=== PATIENT | male | born 1945 | race Caucasian/White ===

== ENCOUNTER 2018-02-05 23:03 | Observation (INO) | payer MEDICARE, OTHER ==
--- NOTE | 2018-02-05 23:18 | ERNOTE ---
Dyspnea - General Presenting Symptoms: shortness of breath Time Seen by Provider: 02/05/18 23:07 Source: patient Exam Limitations: no limitations - Immun/Allergies/Home Medications Allergies/Adverse Reactions: Allergies fructose Allergy (Mild, Verified 02/05/18 23:39) Home Medications: HOME MEDICATIONS ALPRAZolam [Xanax] 0.5 mg PO BID 02/05/18 [Last Taken Unknown] Amino AC/Whey Prot Conc, Isol [Whey Protein Powder] 20 gm PO DAILY 02/05/18 [ Last Taken Unknown] Arformoterol Tartrate [Brovana] 15 mcg IH BID 02/05/18 [Last Taken Unknown] Aspirin 81 mg PO DAILY 02/05/18 [Last Taken Unknown] Budesonide [Pulmicort Respules] 2 ml IH BID 02/05/18 [Last Taken Unknown] Flecainide Acetate 100 mg PO BID 02/05/18 [Last Taken Unknown] Ipratropium [place] 0.2 mg IH QID 02/05/18 [Last Taken Unknown] Midodrine HCl 5 mg PO TID 02/05/18 [Last Taken Unknown] Omeprazole 20 mg PO DAILY 02/05/18 [Last Taken Unknown] Pnv No.122/Iron/Folic Acid [ Multi Tablet] 1 each PO DAILY 02/05/18 [ Last Taken Unknown] Pravastatin Sodium 40 mg PO DAILY 02/05/18 [Last Taken Unknown] Propranolol HCl 60 mg PO BID 02/05/18 [Last Taken Unknown] Warfarin Sodium 4 mg PO TUFR 02/05/18 [Last Taken Unknown] Warfarin Sodium [Coumadin] 3 mg PO SUMOWETHSA 02/05/18 [Last Taken Unknown] metFORMIN HCL [Metformin HCl] 500 mg PO BID 02/05/18 [Last Taken Unknown] predniSONE [Prednisone] 2.5 mg PO DAILY 02/05/18 [Last Taken Unknown] - History of Present Illness Narrative: Pt had onset of increased shortness of breath last night and has been worsening throughout the day. Severity: moderate Treatment [employer]: paramedics, oxygen, albuterol Initiating event: Reports: unknown Frequency of episodes: Reports: frequent episodes Modifying Factors - (Improves): Reports: albuterol, oxygen Modifying Factors (Worsens): Reports: activity Associated Symptoms-Dyspnea: Reports: fever/chills, wheezing Review of Systems - Review of Systems Constitutional: Present: recent illness, chills EYE: Absent: vision changes Respiratory: Present: See HPI, shortness of breath Cardiology: Absent: chest pain, palpitations Gastrointestinal/Abdominal: Absent: nausea, vomiting Musculoskeletal: Absent: back pain, muscle pain Endocrine: Absent: excessive sweating, flushing Medical History (Last Reviewed 02/06/18 @ 02:42 by Luis Alberto Honeycutt DO) Afib COPD (chronic obstructive pulmonary disease) Diabetes Essential tremor Surgical History: Surgical History (Last Reviewed 02/06/18 @ 02:42 by Luis Alberto Honeycutt DO) FH: carotid endarterectomy Hx of tonsillectomy Pacemaker Prostate cancer Family History: Family History (Last Updated 02/05/18 @ 23:28 by Ela Astudillo RN) Other Unknown family medical history Physical Exam - Physical Exam General Appearance: Present: wd/wn, alert, mild distress Head Exam: Present: normal inspection, no evidence of injury Ears, Nose, Throat: Present: normal ENT inspection Neck: Present: normal inspection, nontender Respiratory: Present: no accessory muscle use, decreased breath sounds, expiration (prolonged) Cardiovascular/Chest: Present: regular rate, rhythm, no murmur Gastrointestinal/Abdominal: Present: normal bowel sounds, nontender, nondistended, soft Extremity Exam: Present: normal inspection, normal range of motion Neurological Exam: Present: alert, oriented, normal mood/affect Skin Exam: Present: warm/dry Lymphatic Exam: Present: no adenopathy ED Progress - Results and Orders Patient's Lab Results:: I have reviewed the patient's lab results. Results and Orders: Laboratory Tests 02/05/18 02/05/18 23:20 23:20 Sodium 137 Potassium 3.7 Carbon Dioxide 30.6 BUN 13 Creatinine 0.93 Random Glucose 108 Lactic Acid, Venous 1.7 Calcium 9.2 Total Bilirubin 0.5 AST 19 ALT 42 Alkaline Phosphatase 50 B-Natriuretic Peptide 354 H Total Protein 8.1 Albumin 3.8 - Vital Signs Patient's Vital Signs:: I have reviewed the patient's vital signs. - EKG EKG read: Interp. by me EKG Comments: supraventricular rhythm, artifact from pt's essential tremor present. No ST-T wave changes. - X-Ray X-Ray #1 X-Ray: chest Interpretation: Interp. by me X-ray Comments: Scarring bilateral bases, no infiltrate or effusion. changes of COPD. - Progress/Reassessment Progress:: Improved Progress Note-Subjective: 02/06/18 02:[address] De La Torre he agrees with admission Departure Clinical Impression: Acute exacerbation of chronic obstructive pulmonary disease (COPD) - Departure Disposition: Still a patient Condition: Fair
[2018-02-05 23:29] LABS: Hematocrit 42.4 % (42.0-52.0); Hemoglobin 13.6 gm/dL (13.5-18.0); Mean Cell Volume 94.6 fl (78-100); Mean Corpuscular Hemoglobin 30.4 pg (27-31); Mean Corpuscular Hgb Conc 32.1 g/dl (32-36); Mean Platelet Volume 11.7 fl (8-11.3); Neutrophil # 10.7 K/mm3 (1.3-6.0); Neutrophil % 75.1 % (42-75.0); Platelet Count 200 K/mm3 (150-450); Red Blood Count 4.48 M/mm3 (4.7-6.0); Red Cell Distribution Width 16.2 % (11.5-14.0); White Blood Count 14.3 K/mm3 (4.0-10.5)
[2018-02-05 23:52] LABS: Albumin * 3.8 gm/dl (3.4-5.0); Anion Gap 10.1 mmol/L (6.8-13.8); Bilirubin, Total 0.5 mg/dL (0.0-1.1); Calcium * 9.2 mg/dL (7.9-10.9); Carbon Dioxide 30.6 mmol/L (24-32.6); Potassium 3.7 mmol/L (3.4-4.6); Total Protein 8.1 gm/dL (6.2-8.2)
[2018-02-06] MEDS ORDERED: METHYLPREDNISOLONE SOD SUCC/PF 125 MG/2 ML VIAL IV ONE (02:11)
[2018-02-06] MEDS ORDERED: METHYLPREDNISOLONE SOD SUCC/PF 125 MG/2 ML VIAL ONE (02:24)
--- NOTE | 2018-02-06 08:58 | HP ---
Chief Complaint - Chief Complaint Date of Service: 02/06/18 Time of Service: 08:52 Chief Complaint: Shortness of Breath History of Present Illness: Robert is a 72 yo male with COPD and chronic respiratory failure. He is on 2lpm during the day and 3lpm at night for his baseline. He denies any recent travel, sick contacts, or other changes. He reports over the last few days he has increased shortness of breath, increased sputum production. No fevers or chills. He did not have significant hypoxia in the ER and remains on his baseline O2 needs. He reports this morning he is already feeling a little better. Chest xray showed no evidence of pneumonia or acute change. Medical History (Last Updated 02/06/18 @ 05:17 by Perla Duncan RN) Anxiety Hyperlipemia Hypotension Afib COPD (chronic obstructive pulmonary disease) Diabetes Essential tremor Surgical History: Surgical History (Last Reviewed 02/06/18 @ 05:18 by Perla Duncan RN) FH: carotid endarterectomy Hx of tonsillectomy Pacemaker Prostate cancer Family History: Family History (Last Reviewed 02/06/18 @ 05:18 by Perla Duncan RN) Other Unknown family medical history Social History: Patient Lives/Resources With Spouse Utilized Occupation Retired Preferred Language [place] Do you have any samaritan or No cultural preference? Smoking Status Current every day smoker Have you smoked in the past 12 Yes months Do you dip or chew tobacco No Alcohol Use none Drug Use none Review Of Systems (GEN) - Review of Systems Generalized/Overall Review: Present: Weakness. Absent: Chills, Fever EENTM: Present: No Symptoms Reported Respiratory: Present: Cough, Shortness of Breath Cardiac: Absent: Chest Pain, Palpitations Abdominal: Absent: Nausea, Vomiting Genitourinary: Present: No Symptoms Reported Musculoskeletal: Present: No Symptoms Reported Neurological: Present: No Symptoms Reported Skin: Present: No Symptoms Reported Immunizations: IMMUNIZATION HX Immunizations Up to Date Yes History of Influenza Vaccine No Allergies/Adverse Reactions: Allergies Allergy/AdvReac Type Severity Reaction Status Date / Time fructose Allergy Mild Verified 02/05/18 23:39 Home Medications: HOME MEDICATIONS ALPRAZolam [Xanax] 0.5 mg PO BID 02/05/18 [Last Taken Unknown] Amino AC/Whey Prot Conc, Isol [Whey Protein Powder] 20 gm PO DAILY 02/05/18 [Last Taken Unknown] Arformoterol Tartrate [Brovana] 15 mcg IH BID 02/05/18 [Last Taken Unknown] Aspirin 81 mg PO DAILY 02/05/18 [Last Taken Unknown] Budesonide [Pulmicort Respules] 2 ml IH BID 02/05/18 [Last Taken Unknown] Flecainide Acetate 100 mg PO BID 02/05/18 [Last Taken Unknown] Ipratropium [place] 0.2 mg IH QID 02/05/18 [Last Taken Unknown] Midodrine HCl 5 mg PO TID 02/05/18 [Last Taken Unknown] Omeprazole 20 mg PO DAILY 02/05/18 [Last Taken Unknown] Pnv No.122/Iron/Folic Acid [ Multi Tablet] 1 each PO DAILY 02/05/18 [Last Taken Unknown] Pravastatin Sodium 40 mg PO DAILY 02/05/18 [Last Taken Unknown] Propranolol HCl 60 mg PO BID 02/05/18 [Last Taken Unknown] Warfarin Sodium 4 mg PO TUFR 02/05/18 [Last Taken Unknown] Warfarin Sodium [Coumadin] 3 mg PO SUMOWETHSA 02/05/18 [Last Taken Unknown] metFORMIN HCL [Metformin HCl] 500 mg PO BID 02/05/18 [Last Taken Unknown] predniSONE [Prednisone] 2.5 mg PO DAILY 02/05/18 [Last Taken Unknown] Exam - Exam Vital Signs: Vital Signs - Last Taken Temp 36.1 C 02/06/18 06:19 Pulse 79 02/06/18 06:19 Resp 24 H 02/06/18 06:19 BP 149/83 02/06/18 06:19 Pulse Ox 93 02/06/18 08:13 Constitutional: Present: Alert, Oriented x3, Cooperative ENT Exam: Present: hearing grossly normal Eye Exam: bilateral eye: normal inspection Respiratory: Present: wheezing Cardiovascular/Chest: Present: regular rate, rhythm, no murmur Abdomen: Present: Normal bowel sounds, soft, nontender, obese Skin Exam: Present: normal color, warm/dry, no cyanosis Lymphatic: Present: no adenopathy Diagnostic Studies: Abnormal Lab Results 02/05/18 02/05/18 Range/Units 23:20 23:20 WBC 14.3 H (4.0-10.5) K/mm3 RBC 4.48 L (4.7-6.0) M/mm3 RDW 16.2 H (11.5-14.0) % MPV 11.7 H (8-11.3) fl Immature Gran % (Auto) 0.60 H (0.001-0.429) % Immature Gran # (Auto) 0.09 H (0.000-0.0310) K/mm3 Neutrophils % 75.1 H (42-75.0) % Lymphocytes % 13.1 L (20-51) % Monocytes % 10.5 H (0.0-9) % Neutrophils # 10.7 H (1.3-6.0) K/mm3 Monocytes # 1.5 H (0.0-1.0) k/mm3 B-Natriuretic Peptide 354 H (5-350) pg/mL Laboratory Results WBC 14.3 K/mm3 (4.0-10.5) H 02/05/18 23:20 RBC 4.48 M/mm3 (4.7-6.0) L 02/05/18 23:20 Hgb 13.6 gm/dL (13.5-18.0) 02/05/18 23:20 Hct 42.4 % (42.0-52.0) 02/05/18 23:20 MCV 94.6 fl (78-100) 02/05/18 23:20 MCH 30.4 pg (27-31) 02/05/18 23:20 MCHC 32.1 g/dl (32-36) 02/05/18 23:20 RDW 16.2 % (11.5-14.0) H 02/05/18 23:20 Plt Count 200 K/mm3 (150-450) 02/05/18 23:20 MPV 11.7 fl (8-11.3) H 02/05/18 23:20 Immature Gran % (Auto) 0.60 % (0.001-0.429) H 02/05/18 23:20 Immature Gran # (Auto) 0.09 K/mm3 (0.000-0.0310) H 02/05/18 23:20 Neutrophils % 75.1 % (42-75.0) H 02/05/18 23:20 Lymphocytes % 13.1 % (20-51) L 02/05/18 23:20 Monocytes % 10.5 % (0.0-9) H 02/05/18 23:20 Eosinophils % 0.5 % (0.0-3.0) 02/05/18 23:20 Basophils % 0.2 % (0.0-1.0) 02/05/18 23:20 Nucleated RBC % 0.0 k/mm3 (0-1) 02/05/18 23:20 Neutrophils # 10.7 K/mm3 (1.3-6.0) H 02/05/18 23:20 Lymphocytes # 1.87 k/mm3 (1.5-3.5) 02/05/18 23:20 Monocytes # 1.5 k/mm3 (0.0-1.0) H 02/05/18 23:20 Eosinophils # 0.1 k/mm3 (0.0-0.7) 02/05/18 23:20 Absolute Basophils 0.0 k/mm3 (0.0-0.1) 02/05/18 23:20 Sodium 137 mmol/L (132-142) 02/05/18 23:20 Plasma Sodium 137 mmol/L (130-142) 02/05/18 23:20 Potassium 3.7 mmol/L (3.4-4.6) 02/05/18 23:20 Chloride 100 mmol/L (97-106) 02/05/18 23:20 Carbon Dioxide 30.6 mmol/L (24-32.6) 02/05/18 23:20 Anion Gap 10.1 mmol/L (6.8-13.8) 02/05/18 23:20 BUN 13 mg/dL (6-23) 02/05/18 23:20 Creatinine 0.93 mg/dL (0.4-1.4) 02/05/18 23:20 Est GFR (Non-Af Amer) 84 mL/min (60-130) 02/05/18 23:20 BUN/Creatinine Ratio 14.0 (9.0-21.6) 02/05/18 23:20 Random Glucose 108 mg/dL (70-110) 02/05/18 23:20 Lactic Acid, Venous 1.7 mmol/L (0.4-2.0) 02/05/18 23:20 Calcium 9.2 mg/dL (7.9-10.9) 02/05/18 23:20 Calcium Adj for Albumin 9.0 mg/dL (8.4-10.2) 02/05/18 23:20 Total Bilirubin 0.5 mg/dL (0.0-1.1) 02/05/18 23:20 AST 19 U/L (0-48) 02/05/18 23:20 ALT 42 U/L (19-67) 02/05/18 23:20 Alkaline Phosphatase 50 U/L (50-170) 02/05/18 23:20 B-Natriuretic Peptide 354 pg/mL (5-350) H 02/05/18 23:20 Total Protein 8.1 gm/dL (6.2-8.2) 02/05/18 23:20 Albumin 3.8 gm/dl (3.4-5.0) 02/05/18 23:20 Assessment/Plan - Narrative Narrative: Robert is a 72 yo male with: 1) Acute Exacerbation of COPD - Given IV solumedrol in the ER will continue steroids with prednisone at 40mg daily. Will treat with azithromycin 500mg x 3 days. Albuterol nebulizers. Patient is already feeling better will admit to observation. Anticipate discharge tomorrow. 2) Chronic Respiratory Failure - On baseline oxygen. Will continue to monitor. - Assessment/Plan (1) Acute exacerbation of chronic obstructive pulmonary disease (COPD) Problem: Acute (2) Chronic respiratory failure with hypoxia Problem: Acute
[2018-02-06] MEDS ORDERED: IPRATROPIUM BROMIDE 0.5 MG/2.5 ML VIAL.NEB IH SCH (09:00)
[2018-02-06] MEDS: FORMOTEROL FUMARATE 20 MCG/2 ML VIAL IH SCH ×2 (09:21→18:08)
[2018-02-06] MEDS: BUDESONIDE 0.5 MG/2 ML VIAL.NEB IH SCH ×2 (09:24→18:08)
[2018-02-06] MEDS: ALPRAZolam 0.5 MG TABLET PO SCH ×2 (09:54→23:21)
[2018-02-06] MEDS: PANTOPRAZOLE SODIUM 20 MG TABLET.DR PO SCH (09:55)
[2018-02-06] MEDS: FLECAINIDE ACETATE 100 MG TABLET PO SCH ×2 (09:55→23:21)
[2018-02-06] MEDS: PROPRANOLOL HCL 20 MG TABLET PO SCH ×2 (09:55→23:23)
[2018-02-06] MEDS: ASPIRIN 81 MG TAB.CHEW PO SCH (09:55)
[2018-02-06] MEDS: metFORMIN HCL 500 MG TABLET PO SCH ×2 (09:55→17:28)
[2018-02-06] MEDS: predniSONE 20 MG TABLET PO SCH (09:56)
[2018-02-06] MEDS: AZITHROMYCIN 250 MG TABLET PO SCH (09:56)
[2018-02-06] MEDS: MIDODRINE HCL 2.5 MG TABLET PO SCH ×3 (09:56→17:28)
[2018-02-06 10:23] LABS: Prothrombin Time (Patient) 25.4 Seconds (9.0-11.0)
[2018-02-06 10:29] LABS: INR 2.52 INR (0.90-1.10)
[2018-02-06] MEDS: IPRATROPIUM BROMIDE 0.5 MG/2.5 ML VIAL.NEB IH SCH ×3 (11:22→18:07)
[2018-02-06] MEDS ORDERED: WARFARIN SODIUM 4 MG TABLET PO SCH (17:00)
[2018-02-06] MEDS ORDERED: SIMVASTATIN 20 MG TABLET PO SCH (21:00)
[2018-02-07] MEDS: IPRATROPIUM BROMIDE 0.5 MG/2.5 ML VIAL.NEB IH SCH ×2 (06:04→10:50)
[2018-02-07] MEDS: FORMOTEROL FUMARATE 20 MCG/2 ML VIAL IH SCH (06:04)
[2018-02-07] MEDS: BUDESONIDE 0.5 MG/2 ML VIAL.NEB IH SCH (06:04)
[2018-02-07] MEDS: PANTOPRAZOLE SODIUM 20 MG TABLET.DR PO SCH (06:32)
[2018-02-07 08:19] LABS: Prothrombin Time (Patient) 23.3 Seconds (9.0-11.0)
[2018-02-07 08:21] LABS: INR 2.31 INR (0.90-1.10)
[2018-02-07] MEDS: ASPIRIN 81 MG TAB.CHEW PO SCH (08:42)
[2018-02-07] MEDS: metFORMIN HCL 500 MG TABLET PO SCH (08:43)
[2018-02-07] MEDS: predniSONE 20 MG TABLET PO SCH (08:44)
[2018-02-07] MEDS: PROPRANOLOL HCL 20 MG TABLET PO SCH (08:44)
[2018-02-07] MEDS: MIDODRINE HCL 2.5 MG TABLET PO SCH (08:44)
[2018-02-07] MEDS: FLECAINIDE ACETATE 100 MG TABLET PO SCH (08:45)
[2018-02-07] MEDS: AZITHROMYCIN 250 MG TABLET PO SCH (08:45)
[2018-02-07] MEDS: ALPRAZolam 0.5 MG TABLET PO SCH (08:47)
--- NOTE | 2018-02-07 09:41 | DS ---
(1) Acute exacerbation of chronic obstructive pulmonary disease (COPD) Problem: Acute (2) Chronic respiratory failure with hypoxia Problem: Acute Description of Stay: Robert is a 72 yo male that was admitted to observation for COPD exacerbation and chronic respiratory failure. His oxygen needs were at his usual baseline of 2lpm during the day and 3lpm at night. He was treated with azithromycin and steroids and improved. He reports feeling well today. He will be discharged to home. Will complete his course of azithromycin 500mg X 3 total days and will have him take Prednisone 40mg daily x 7 days then 20mg x 7 days, then 10mg x 7 days, then resume his home dose of 2.5mg daily. Procedures Performed: none Results and Findings: Lab Pending Results 02/05/18 23:20: WBC 14.3 H, RBC 4.48 L, Hgb 13.6, Hct 42.4, MCV 94.6, MCH 30.4, MCHC 32.1, RDW 16.2 H, Plt Count 200, MPV 11.7 H, Immature Gran % (Auto) 0.60 H, Immature Gran # (Auto) 0.09 H, Neutrophils % 75.1 H, Lymphocytes % 13.1 L, Monocytes % 10.5 H, Eosinophils % 0.5, Basophils % 0.2, Nucleated RBC % 0.0, Neutrophils # 10.7 H, Lymphocytes # 1.87, Monocytes # 1.5 H, Eosinophils # 0.1, Absolute Basophils 0.0 02/05/18 23:20: Sodium 137, Plasma Sodium 137, Potassium 3.7, Chloride 100, Carbon Dioxide 30.6, Anion Gap 10.1, BUN 13, Creatinine 0.93, Est GFR (Non-Af Amer) 84, BUN/Creatinine Ratio 14.0, Random Glucose 108, Calcium 9.2, Calcium Adj for Albumin 9.0, Total Bilirubin 0.5, AST 19, ALT 42, Alkaline Phosphatase 50, B-Natriuretic Peptide 354 H, Total Protein 8.1, Albumin 3.8 02/05/18 23:20: Lactic Acid, Venous 1.7 02/05/18 23:30: PT 25.4 H, INR (Anticoag Therapy) 2.52 H 02/07/18 08:10: PT 23.3 H, INR (Anticoag Therapy) 2.31 H Discharge Location: Home Disposition: Home self-care Condition: Fair Discharge Activity: Activity as tolerated Discharge Diet: General/regular food Referrals: Mitul Mccauley MD [Primary Care Provider] - One Week Additional Patient Instructions (free text): -Please make TCM appointment unless detention discharge. Thank you! Alesia @ [phone]. Prescriptions (Any new or edited meds): Azithromycin [Zithromax] 500 mg PO DAILY #2 tablet predniSONE [Prednisone] 40 mg PO DAILY #25 tablet Complete Home Medications List: Complete Home Medication List: ALPRAZolam [Xanax] 0.5 mg PO BID 02/05/18 Amino AC/Whey Prot Conc, Isol [Whey Protein Powder] 20 gm PO DAILY 02/05/18 Arformoterol Tartrate [Brovana] 15 mcg IH BID 02/05/18 Aspirin 81 mg PO DAILY 02/05/18 Budesonide [Pulmicort Respules] 2 ml IH BID 02/05/18 Flecainide Acetate 100 mg PO BID 02/05/18 Ipratropium [place] 0.2 mg IH QID 02/05/18 Midodrine HCl 5 mg PO TID 02/05/18 Omeprazole 20 mg PO DAILY 02/05/18 Pnv No.122/Iron/Folic Acid [ Multi Tablet] 1 each PO DAILY 02/05/18 Pravastatin Sodium 40 mg PO DAILY 02/05/18 Propranolol HCl 60 mg PO BID 02/05/18 Warfarin Sodium 4 mg PO TUFR 02/05/18 Warfarin Sodium [Coumadin] 3 mg PO SUMOWETHSA 02/05/18 metFORMIN HCL [Metformin HCl] 500 mg PO BID 02/05/18 predniSONE [Prednisone] 2.5 mg PO DAILY 02/05/18 Azithromycin [Zithromax] 500 mg PO DAILY #2 tablet 02/07/18 predniSONE [Prednisone] 40 mg PO DAILY #25 tablet 02/07/18
[2018-02-07 11:45] VITALS: BP 126/70
[2018-02-07] MEDS ORDERED: WARFARIN SODIUM 3 MG TABLET PO SCH (17:00)
== END 2018-02-07 11:40 | disposition home or self-care (01) ==
LOC: ER 23:03 → INTOOBSV 02-06 02:00 → MS 02-06 02:00
PROVIDERS: ADMIT Family Medicine; ATTEND Family Medicine
CPT/HCPCS: 36415; 71010; 71045; 80053; 83519; 83605; 83880; 85025; 85610; 90686; 93005; 94640; 94664; 94760; 96374; 99283; G0008; G0378